=== PATIENT | female | born 1955 | race Caucasian/White ===

== ENCOUNTER → 2016-07-30 | Day surgery (SDC) | payer BC ==
[~2016-07-30] VITALS: Ht 170.2 cm; Wt 79.0 kg
[~2016-07-30] MED LIST: CALC500C6 CHEW; DEXAMETHASONE SOD PHOS 4 MG/ML VIAL ONE; DEXT 5%-NACL 0.45% 1000 ML INJ 1,000 ML IV SCH; EVIS60TA PO; FAMOTIDINE 20 MG/2 ML VIAL ONE; IBUP800T23 PO; LACTATED RINGER'S 1000 ML INJ 1,000 ML ONE; MIDAZOLAM HCL 2 MG/2 ML VIAL ONE; ONDANSETRON HCL 4 MG/2 ML VIAL IV PUSH ONE; POVIDONE IODINE 10% OINT 1 PACKET TOPICAL ONE; PROPOFOL 200 MG/20 ML AMP IV ONE; SODIUM CHLORIDE 0.9% FLUSH 5 ML FLUSH IVF PRN; SODIUM CHLORIDE 0.9% FLUSH 5 ML FLUSH IVF SCH; VITA100064 PO; ceFAZolin 2 GM PREMIX 50 ML ONE
[2016-07-30 06:44] VITALS: BP 112/67; PULSE 63; RESP 20; TEMP 98; O2SAT 97
[2016-07-30 06:45] LABS: MEAN CELL VOLUME 91.6 FL (80.0-100.0); MEAN CORPUSCULAR HGB CONC 33.9 % (32.0-36.0); PLATELET COUNT 223 TH/MM3 (150-450); RED BLOOD COUNT 4.05 MIL/MM3 (4.00-5.30); RED CELL DISTRIBUTION WIDTH 12.6 % (11.6-17.2); REVIEW FLAG FINAL; WHITE BLOOD COUNT 4.3 TH/MM3 (4.0-11.0)
--- NOTE | 2016-07-30 07:57 | HP.UPD ---
H&P Update Date: Jul 30, 2016 Note The Pre-Admit History and Physical Examination regarding the above named patient was reviewed (including, but not limited to, vital signs, medications, allergies, co-morbid conditions), and upon re-examination it is noted that: Indicated with "X" x - the patient's condition has not significantly changed since the last examination. [] - the patient's condition has changed since the last examination. Changes: Harriet Mann MD Jul 30, 2016 07:57
[2016-07-30] MEDS: BUPIVACAINE HCL PF 0.5% 30 ML VIAL ONE ×2 (08:29→08:36)
--- NOTE | 2016-07-30 09:55 | HHI.PR ---
Immediate Post Op Note Procedure Date: Jul 30, 2016 Pre Op Diagnosis: (1) Carpal tunnel syndrome (2) Primary localized osteoarthrosis, hand Post Op Diagnosis: (1) Carpal tunnel syndrome (2) Primary localized osteoarthrosis, hand Surgeon: Harriet Mann Breaster(s): None Procedure: Endoscopic release of the left carpal tunnel. Arthroplasty of the left thumb IP joint. Anesthesia: General Drains: None Tourniquet time (min at mmHg) 35 minutes at 220 mm Hg. Patient to: PACU Patient Condition: Good Date/Time of Procedure: SEE SURGICAL CARE RECORD Harriet Mann MD Jul 30, 2016 09:55
[2016-07-30 10:50] VITALS: BP 100/60; PULSE 57; RESP 16; TEMP 98; O2SAT 97
--- NOTE | 2016-08-01 14:03 | MP ---
cc: BERNARDO GOMEZ M.D. DATE OF SURGERY: 07/30/2016 PREOPERATIVE DIAGNOSIS 1. Left carpal tunnel syndrome. 2. 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 POSTOPERATIVE DIAGNOSIS 1. Left carpal tunnel syndrome. 2. 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 PROCEDURE 1. Endoscopic release of the left carpal tunnel. 2. Arthroplasty of left thumb interphalangeal joint. ANESTHESIA General. SURGEON Bernardo Gomez MD INDICATIONS A 60-year-old female with degenerative joint disease of the left thumb IP joint with pain and swelling. In addition she had left carpal tunnel syndrome. FINDINGS At the completion of the procedure the carpal tunnel was released. It was quite tight. In addition, the thumb IP joint had a significant amount of bone spur formation which was removed at the completion of the procedure. TOURNIQUET TIME 35 minutes. DETAILS OF PROCEDURE The patient was seen preoperatively where the sites and side were identified and marked. The patient was then taken to the operating room, placed in a supine position. Her identity was checked against the arm band and the consent form, sites and side confirmed. A timeout was called prior to beginning the procedure. The left upper extremity was prepped with Hibiclens and draped in the usual sterile fashion. The area to be incised was outlined with a marking pen as a transverse incision 1.5 cm proximal to the distal wrist crease. The distal edge of the transverse carpal ligament was identified and marked. In addition, a J-shaped incision was designed over the IP joint of the left thumb. The arm was exsanguinated and the tourniquet inflated to 220 mmHg. A #15 blade was then used to make the incision in the distal forearm, down through the skin down to the subcutaneous tissue. Using a spread technique the forearm fascia was identified. It was then entered and elevated. The synovial elevator was then used to identify the transverse carpal ligament as well as clean the synovium from it. The obturator cannula apparatus was then introduced into the wound and then just distal to the transverse carpal ligament popped through the palmar fascia into the subcutaneous plane where a separate incision was made. The entire apparatus was delivered. The obturator was removed leaving the cannula in place. The scope was then passed from distal to proximal identifying the transverse carpal ligament. Then under direct vision using the scope the transverse carpal ligament was divided. Photos were taken. The obturator was then placed back into the cannula and the entire apparatus was removed. A forearm fasciotomy was then carried out for 2 or 3 cm proximal to the distal wrist incision under direct vision. The wounds were then closed with Dermabond after injecting with bupivacaine 0.5% plain. Once the glue had dried in several layers Steri-Strips were applied. Attention was then turned to the thumb where an incision was made transversely over the joint and then along the mid lateral approach on the radial side. Under loupe magnification and using the spread technique, superficial vessels and nerves were identified and retracted exposing the extensor tendon. The tendon was elevated and the bone spurs underneath were visualized and removed with a rongeur and a curet. Additionally, some synovitic material was removed. Once all the bony spurs were removed, the wound was copiously irrigated with saline and closed with interrupted and running 5-0 nylon suture. Bupivacaine 0.5% plain was used to make a metacarpal head block to the thumb dorsally and palmarly. Once the wound was closed pressure was applied on both the wounds and the tourniquet was released after 35 minutes of tourniquet time. After several minutes there was no evidence of any oozing. A dressing was applied using povidone-iodine ointment, Adaptic and Telfa on the thumb, and 4x4s to all of the wounds along with hand wrap. The patient was then taken from the operating room to the recovery room in satisfactory condition having tolerated the procedure well. Postoperative instructions include keeping the arm elevated, keeping it clean and dry and returning in several days for follow-up. She was given a prescription for ibuprofen 800, #40 were prescribed. MD NAPOLEON Rushing/TARA /9:54 AM /1:47 PM
== END | disposition home or self-care (01) ==
LOC: PHSDC 06:00
PROVIDERS: ATTEND Specialist
DX: G56.02 Carpal tunnel syndrome, left upper limb (principal); M19.042 Primary osteoarthritis, left hand
CPT/HCPCS: 01830; 26535; 29848; 36415; 85027; J0690; J1100; J2250; J2405; J3010; J7120